=== PATIENT | male | born 1960 | race Caucasian/White ===

== ENCOUNTER → 2016-07-23 | Outpatient (CLI) | payer BC ==
[2016-07-23 18:38] LABS: Blood Urea Nitrogen 10 mg/dL (9-20); Non-African American GFR(MDRD) >60 (>60 ml/min/1.73 sqM)
--- NOTE | 2016-07-24 08:58 | CT ---
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 CT DLP: 1714.6 mGycm Automated exposure control for dose reduction was used. CONTRAST: CT scan of the chest, abdomen and pelvis is performed with Oral Contrast and with IV Contrast, patien t injected with 100 mL of Omnipaque 300. FINDINGS: LUNGS: The lungs are grossly clear, there is no concerning parenchymal mass or nodule identified. T here is no pleural effusion or pneumothorax seen. The tracheobronchial tree is patent. Lung apices w ere not included on the exam. MEDIASTINUM: There are no greater than 1 cm hilar or mediastinal lymph nodes. No pericardial effusi on is seen. AORTA: No significant abnormality is seen. OTHER: No additional significant abnormality is seen. LIVER/GB: The liver shows low attenuation and is enlarged likely due to fatty infiltration. Gallbladd er is unremarkable. PANCREAS: No significant abnormality is seen. SPLEEN: No significant abnormality is seen. ADRENALS: No significant abnormality is seen. KIDNEYS: Stable appearance. Hypodense focus associated with the right kidney is stable. REPRODUCTIVE ORGANS: The prostate is enlarged and shows some associated calcifications BOWEL: The appendix is not seen. No evident bowel obstruction. Postop changes noted at the cecum FREE AIR: No Free Air visible. ASCITES: None seen. RETROPERITONEAL ADENOPATHY: No retroperitoneal adenopathy is seen. LYMPH NODES: No greater than 1 cm abdominal or pelvic lymph nodes are appreciated. URINARY BLADDER: No significant abnormality is seen. PELVIC ADENOPATHY: None visualized. OSSEOUS STRUCTURES: No significant abnormality is seen. IMPRESSION: Postop changes. No evident recurrence.
== END | disposition home or self-care (01) ==
LOC: RADCTMAIN 18:01
PROVIDERS: ATTEND Internal Medicine Hematology & Oncology
DX: Z03.89 Encounter for observation for other suspected diseases and conditions ruled out (principal); C18.1 Malignant neoplasm of appendix
CPT/HCPCS: 82565; 84520; 71260; 74177; 36415; Q9967

== ENCOUNTER 2016-09-15 13:36 | Observation (INO) | payer BC ==
[2016-09-15] MEDS ORDERED: ASPIRIN 81 MG CHEW PO STA (14:26)
[2016-09-15] MEDS ORDERED: NITROGLYCERIN SL TABS 0.4 MG TAB SUBLINGUAL STA ×3 (14:26)
--- NOTE | 2016-09-15 14:31 | ED ---
General Adult HPI - General Chief complaint: Chest Pain Stated complaint: Sent by PCP rt side pain Time Seen by Provider: 09/15/16 14:00 Source: patient, RN notes reviewed Mode of arrival: ambulatory Limitations: no limitations - History of Present Illness Initial comments: Patient is a pleasant 56-year-old male presenting to the emergency department complaining of chest discomfort. Onset of symptoms was last night. Symptoms are more persistent at this point. Patient did have symptoms several days ago that were mild and short lasting. Discomfort feels like an ache. Discomfort is more right-sided. Discomfort does somewhat worsen with deep breath. Otherwise no dyspnea. No nausea or diaphoresis. No leg pain or swelling. No cough or fever. Discomfort is currently rated 8/10. - Related Data Home Medications Medication Instructions Recorded Confirmed Aspirin 81 mg PO DAILY 05/23/14 09/15/16 Losartan Potassium [Cozaar] 100 mg PO DAILY 05/23/14 09/15/16 sitaGLIPtin PHOS/metFORMIN HCL 1 tab PO BID 05/23/14 09/15/16 [Janumet 50-1,000 mg Tablet] Allergies Allergy/AdvReac Type Severity Reaction Status Date / Time codeine AdvReac HEADACHE Verified 09/15/16 14:23 Review of Systems ROS Statement: Those systems with pertinent positive or pertinent negative responses have been documented in the HPI. ROS Other: All systems not noted in ROS Statement are negative. Constitutional: Denies: fever Eyes: Denies: eye pain ENT: Denies: ear pain Respiratory: Denies: cough, dyspnea Cardiovascular: Reports: chest pain Endocrine: Denies: fatigue Gastrointestinal: Denies: abdominal pain Genitourinary: Denies: urgency Musculoskeletal: Denies: back pain Skin: Denies: rash Neurological: Denies: weakness Past Medical History Past Medical History: Cancer, Diabetes Mellitus, GI Bleed, Hearing Disorder / Deafness, Hyperlipidemia, Hypertension Additional Past Medical History / Comment(s): DEAF LEFT EAR/ COCHLEA IMPLANT; APPENDIX BX REPORT FROM 03/13 15 SHOWED INVASIVE ADENOCARCINOMA History of Any Multi-Drug Resistant Organisms: None Reported Past Surgical History: Appendectomy, Ear Surgery Additional Past Surgical History / Comment(s): Laparoscopic R colectomy, BENIGN BRAIN TUMOR EXC- Left ear cochlear implant, Colonoscopy Rt thumb sx x2-thumb is swollen-hard to use, Lap Appendectomy. Past Anesthesia/Blood Transfusion Reactions: No Reported Reaction Past Psychological History: No Psychological Hx Reported Additional Psychological History / Comment(s): Pt resides with his spouse. He is independent. He uses no assistive device. He drives. Smoking Status: Never smoker Past Alcohol Use History: Occasional Additional Past Alcohol Use History / Comment(s): 12-15 BEERS OR SO, ONCE PER MO AVG Past Drug Use History: None Reported - Past Family History Father Family Medical History: Congestive Heart Failure (CHF), Diabetes Mellitus, Hypertension, Myocardial Infarction ([place]) Mother Family Medical History: Cancer, Diabetes Mellitus Additional Family Medical History / Comment(s): throat /lymph node cancer General Exam Limitations: no limitations General appearance: alert, in no apparent distress Head exam: Present: atraumatic Eye exam: Present: normal appearance, PERRL ENT exam: Present: normal oropharynx Neck exam: Present: normal inspection Respiratory exam: Present: normal lung sounds bilaterally. Absent: chest wall tenderness Cardiovascular Exam: Present: regular rate, normal rhythm Expanded Peripheral pulses: 2+: Radial (R), Radial (L), Dorsalis Pedis (R), Dorsalis Pedis (L) GI/Abdominal exam: Present: soft. Absent: tenderness Extremities exam: Present: normal inspection. Absent: pedal edema, calf tenderness Neurological exam: Present: alert Psychiatric exam: Present: normal affect, normal mood Skin exam: Absent: rash Course Vital Signs 09/15/16 09/15/16 09/15/16 13:45 14:41 14:50 Temperature 99.1 F Pulse Rate 93 84 Respiratory 18 18 Rate Blood Pressure 163/91 159/77 152/70 O2 Sat by Pulse 97 99 99 Oximetry 09/15/16 15:47 Temperature Pulse Rate 78 Respiratory 18 Rate Blood Pressure 133/80 O2 Sat by Pulse 98 Oximetry EKG Findings - EKG Comments: EKG Findings:: Normal sinus rhythm 78. GA 180. QRS 118. QT 366. QTc 417. Left axis. LVH with repolarization changes. Previous EKG from the office dated 05/18/2016 with similar findings. Medical Decision Making - Medical Decision Making Patient reevaluated and resting comfortably in bed. Patient and family updated on results and plan. Case was discussed in detail with Dr. Li, who will admit his patient with cardiology consult. - Lab Data Result diagrams: 09/15/16 14:25 05/09/17 14:25 Lab Results 09/15/16 09/15/16 09/15/16 Range/Units 14:25 14:25 14:25 WBC 7.7 (3.8-10.6) k/uL RBC 5.49 (4.30-5.90) m/uL Hgb 16.0 (13.0-17.5) gm/dL Hct 45.5 (39.0-53.0) % MCV 82.9 (80.0-100.0) fL MCH 29.1 (25.0-35.0) pg MCHC 35.1 (31.0-37.0) g/dL RDW 13.2 (11.5-15.5) % Plt Count 191 (150-450) k/uL Neutrophils % 76 % Lymphocytes % 15 % Monocytes % 5 % Eosinophils % 2 % Basophils % 1 % Neutrophils # 5.9 (1.3-7.7) k/uL Lymphocytes # 1.1 (1.0-4.8) k/uL Monocytes # 0.4 (0-1.0) k/uL Eosinophils # 0.1 (0-0.7) k/uL Basophils # 0.1 (0-0.2) k/uL PT (9.0-12.0) sec INR (<1.1) APTT (22.0-30.0) sec D-Dimer (<0.60) mg/L FEU Sodium 140 (137-145) mmol/L Potassium 3.8 (3.5-5.1) mmol/L Chloride 103 (98-107) mmol/L Carbon Dioxide 25 (22-30) mmol/L Anion Gap 12 mmol/L BUN 14 (9-20) mg/dL Creatinine 0.99 (0.66-1.25) mg/dL Est GFR (MDRD) Af Amer >60 (>60 ml/min/1.73 sqM) Est GFR (MDRD) Non-Af >60 (>60 ml/min/1.73 sqM) Glucose 207 H (74-99) mg/dL Calcium 9.8 (8.4-10.2) mg/dL Magnesium 1.6 (1.6-2.3) mg/dL Total Bilirubin 0.9 (0.2-1.3) mg/dL AST 42 (17-59) U/L ALT 52 (21-72) U/L Alkaline Phosphatase 84 (38-126) U/L Total Creatine Kinase 213 H (55-170) U/L CK-MB (CK-2) 1.9 (0.0-2.4) ng/mL CK-MB (CK-2) Rel Index 0.9 Troponin I <0.012 (0.000-0.034) ng/mL Total Protein 8.1 (6.3-8.2) g/dL Albumin 4.8 (3.5-5.0) g/dL 09/15/16 Range/Units 14:25 WBC (3.8-10.6) k/uL RBC (4.30-5.90) m/uL Hgb (13.0-17.5) gm/dL Hct (39.0-53.0) % MCV (80.0-100.0) fL MCH (25.0-35.0) pg MCHC (31.0-37.0) g/dL RDW (11.5-15.5) % Plt Count (150-450) k/uL Neutrophils % % Lymphocytes % % Monocytes % % Eosinophils % % Basophils % % Neutrophils # (1.3-7.7) k/uL Lymphocytes # (1.0-4.8) k/uL Monocytes # (0-1.0) k/uL Eosinophils # (0-0.7) k/uL Basophils # (0-0.2) k/uL PT 10.6 (9.0-12.0) sec INR 1.0 (<1.1) APTT 25.3 (22.0-30.0) sec D-Dimer 0.39 (<0.60) mg/L FEU Sodium (137-145) mmol/L Potassium (3.5-5.1) mmol/L Chloride (98-107) mmol/L Carbon Dioxide (22-30) mmol/L Anion Gap mmol/L BUN (9-20) mg/dL Creatinine (0.66-1.25) mg/dL Est GFR (MDRD) Af Amer (>60 ml/min/1.73 sqM) Est GFR (MDRD) Non-Af (>60 ml/min/1.73 sqM) Glucose (74-99) mg/dL Calcium (8.4-10.2) mg/dL Magnesium (1.6-2.3) mg/dL Total Bilirubin (0.2-1.3) mg/dL AST (17-59) U/L ALT (21-72) U/L Alkaline Phosphatase (38-126) U/L Total Creatine Kinase (55-170) U/L CK-MB (CK-2) (0.0-2.4) ng/mL CK-MB (CK-2) Rel Index Troponin I (0.000-0.034) ng/mL Total Protein (6.3-8.2) g/dL Albumin (3.5-5.0) g/dL - Radiology Data Radiology results: image reviewed (Chest x-ray shows no acute process) Disposition Clinical Impression: Chest pain Disposition: ADMITTED IP TO THIS [facility] Time of Disposition: 15:57
[2016-09-15 14:35] LABS: Basophils # (A) 0.1 k/uL (0-0.2); Basophils % (A) 1 %; CH 29.8; CHCM 36.1; Eosinophils # (A) 0.1 k/uL (0-0.7); Eosinophils % (A) 2 %; HCT 45.5 % (39.0-53.0); HDW 3.03; Luc # (Auto) 0.13; Luc % (Auto) 2; Lymphocytes # (A) 1.1 k/uL (1.0-4.8); Lymphocytes % (A) 15 %; MCH 29.1 pg (25.0-35.0); MCHC 35.1 g/dL (31.0-37.0); MCV 82.9 fL (80.0-100.0); Mean Platelet Volume 6.5; Monocytes # (A) 0.4 k/uL (0-1.0); Monocytes % (A) 5 %; Neutrophils # (A) 5.9 k/uL (1.3-7.7); Neutrophils % (A) 76 %; RBC 5.49 m/uL (4.30-5.90); RDW 13.2 % (11.5-15.5); WBC 7.7 k/uL (3.8-10.6); WBC (Perox) 7.61
[2016-09-15 14:49] LABS: Partial Thromboplastin Time 25.3 sec (22.0-30.0); Prothrombin Time 10.6 sec (9.0-12.0)
[2016-09-15 14:52] LABS: ALT 52 U/L (21-72); AST 42 U/L (17-59); Alkaline Phosphatase 84 U/L (38-126); Anion Gap 12 mmol/L; Blood Urea Nitrogen 14 mg/dL (9-20); Calcium 9.8 mg/dL (8.4-10.2); Carbon Dioxide 25 mmol/L (22-30); Chloride 103 mmol/L (98-107); Glucose 207 mg/dL (74-99); Magnesium 1.6 mg/dL (1.6-2.3); Non-African American GFR(MDRD) >60 (>60 ml/min/1.73 sqM); Potassium 3.8 mmol/L (3.5-5.1); Sodium 140 mmol/L (137-145); Total Bilirubin 0.9 mg/dL (0.2-1.3); Total Protein 8.1 g/dL (6.3-8.2)
[2016-09-15 15:12] LABS: Creatine Kinase 213 U/L (55-170)
--- NOTE | 2016-09-15 15:23 | XR ---
EXAMINATION TYPE: XR chest 2V DATE OF EXAM: 09/15/2016 3:08 PM COMPARISON: CT chest 23 July 2016 HISTORY: Chest pain TECHNIQUE: Frontal and lateral views of the chest are obtained. FINDINGS: There is no focal air space opacity, pleural effusion, or pneumothorax seen. The cardiac silhouette size is within normal limits. There are overlying cardiac leads. Lung volumes are low. In terstitium is prominent. The osseous structures are intact. IMPRESSION: Expiratory rotated exam. Follow-up as indicated.
[2016-09-15 15:24] LABS: Creatine Kinase MB 1.9 ng/mL (0.0-2.4); Troponin I <0.012 ng/mL (0.000-0.034)
[2016-09-15] MEDS ORDERED: MORPHINE SULFATE 4 MG/ML SYRINGE IV STA (15:55)
[2016-09-15] MEDS ORDERED: NITROGLYCERIN SL TABS 0.4 MG TAB SUBLINGUAL PRN (15:57)
[2016-09-15] MEDS: NITROGLYCERIN OINT 1 INCH/GM PACKET TOPICAL SCH (18:07)
[2016-09-15 20:34] LABS: Glucose,Whole Blood 167 mg/dL (75-99)
[2016-09-15] MEDS: INSULIN LISPRO (humaLOG) 300 UNIT/3 ML VIAL SQ SCH (21:16)
[2016-09-15 21:57] LABS: Creatine Kinase 165 U/L (55-170)
[2016-09-15 22:09] LABS: Creatine Kinase MB 1.3 ng/mL (0.0-2.4); Troponin I <0.012 ng/mL (0.000-0.034)
[2016-09-16 03:13] LABS: Cholesterol 196 mg/dL (<200); HDL Cholesterol 46 mg/dL (40-60); Triglycerides 290 mg/dL (<150)
[2016-09-16 03:15] LABS: Creatine Kinase 119 U/L (55-170)
[2016-09-16 03:29] LABS: Creatine Kinase MB 1.1 ng/mL (0.0-2.4); Troponin I <0.012 ng/mL (0.000-0.034)
[2016-09-16] MEDS: NITROGLYCERIN OINT 1 INCH/GM PACKET TOPICAL SCH ×3 (03:47→11:51)
[2016-09-16 08:28] LABS: Glucose,Whole Blood 156 mg/dL (75-99)
[2016-09-16 08:36] VITALS: RESP 16
[2016-09-16] MEDS: INSULIN LISPRO (humaLOG) 300 UNIT/3 ML VIAL SQ SCH ×2 (08:41→12:28)
--- NOTE | 2016-09-16 08:43 | P.CRDCN ---
History of Present Illness Consult date: 09/16/16 Chief complaint: Chest pain History of present illness: This is a pleasant 56-year-old gentleman was no significant cardiac history but history of diabetes, hypertension, dyslipidemia presented to the emergency room complaining of chest discomfort. He was in his usual state of health until yesterday when he was going to sleep and started experiencing discomfort on the right lower chest without any radiation to the arm or neck or shoulders and without any associated symptoms of shortness of breath, sweating, dizziness or lightheadedness. The patient underwent an EKG which showed sinus mechanism with left anterior fascicular block and without any ischemic changes. He has 3 sets of enzymes came in to be unremarkable. The patient is not aware of any prior history of CAD or any revascularization in the past. He has diabetes, hypertension, dyslipidemia He does not smoke or drink alcohol. There is no history of premature CAD. I am recommending proceeding with a stress test. Severe underlying CAD to be ruled out in this gentleman with multiple risk factors. Past Medical History Past Medical History: Cancer, Diabetes Mellitus, GI Bleed, Hearing Disorder / Deafness, Hyperlipidemia, Hypertension Additional Past Medical History / Comment(s): DEAF LEFT EAR/ COCHLEA IMPLANT; APPENDIX BX REPORT FROM 03/13 15 SHOWED INVASIVE ADENOCARCINOMA History of Any Multi-Drug Resistant Organisms: None Reported Past Surgical History: Appendectomy, Ear Surgery Additional Past Surgical History / Comment(s): lap appendectomy/ Laparoscopic R colectomy, BENIGN BRAIN TUMOR EXC- Left ear cochlear implant, Colonoscopy Rt thumb sx x2-thumb is swollen-hard to use, colonoscopy Past Anesthesia/Blood Transfusion Reactions: No Reported Reaction Past Psychological History: No Psychological Hx Reported Additional Psychological History / Comment(s): Pt resides with his spouse in a single level home that has 2 steps.1 dog He is independent. He uses no assistive device. He drives. Smoking Status: Never smoker Past Alcohol Use History: Occasional Additional Past Alcohol Use History / Comment(s): 12-15 BEERS OR SO, ONCE PER MO AVG Past Drug Use History: None Reported - Past Family History Father Family Medical History: Congestive Heart Failure (CHF), Diabetes Mellitus, Hypertension, Myocardial Infarction ([place]) Mother Family Medical History: Cancer, Diabetes Mellitus Additional Family Medical History / Comment(s): throat /lymph node cancer Medications and Allergies Home Medications Medication Instructions Recorded Confirmed Type Aspirin 81 mg PO DAILY 05/23/14 09/15/16 History Losartan Potassium [Cozaar] 100 mg PO DAILY 05/23/14 09/15/16 History sitaGLIPtin PHOS/metFORMIN HCL 1 tab PO BID 05/23/14 09/15/16 History [Janumet 50-1,000 mg Tablet] Allergies Allergy/AdvReac Type Severity Reaction Status Date / Time codeine AdvReac HEADACHE Verified 09/15/16 14:23 Physical Exam Vitals: Vital Signs Temp Pulse Pulse Resp BP BP Pulse Ox 09/16/16 08:00 98.2 F 62 16 134/75 97 09/16/16 04:00 98.2 F 75 18 127/72 96 09/16/16 00:00 98.5 F 78 18 134/70 95 09/15/16 20:00 16 09/15/16 19:31 98.1 F 74 16 131/72 96 09/15/16 18:27 97.8 F 77 17 151/85 96 09/15/16 18:24 98.4 F 72 18 151/86 97 09/15/16 18:00 98.4 F 72 18 151/86 97 09/15/16 16:59 70 16 133/80 98 Intake and Output 09/15/16 09/16/16 09/16/16 22:59 06:59 14:59 Intake Total 510 Balance 510 Intake: Amount of Fluid Infused ( 150 ml) Oral 360 Other: # Voids 1 1 Weight 102.6 kg - Constitutional General appearance: no acute distress - Respiratory Respiratory: bilateral: CTA - Cardiovascular Rhythm: regular Heart sounds: normal: S1, S2 Results 09/15/16 14:25 09/15/16 14:25 Cardiac Enzymes 09/15/16 09/16/16 Range/Units 21:09 02:46 CK-MB (CK-2) 1.3 1.1 (0.0-2.4) ng/mL Troponin I <0.012 <0.012 (0.000-0.034) ng/mL Lipids 09/16/16 Range/Units 02:46 Triglycerides 290 H (<150) mg/dL Cholesterol 196 (<200) mg/dL HDL Cholesterol 46 (40-60) mg/dL Current Medications Generic Name Dose Route Start Last Admin Trade Name Freq PRN Reason Stop Dose Admin Aspirin 325 mg 09/16/16 09:00 Aspirin PO DAILY [facility] Insulin Human Lispro 0 unit 09/15/16 21:00 09/15/16 21:16 Humalog SQ 2 unit ACHS [facility] Administration Protocol Losartan Potassium 100 mg 09/16/16 09:00 Cozaar PO DAILY [facility] Nitroglycerin 1 inch 09/15/16 18:00 09/16/16 08:25 Nitro-Bid Oint TOPICAL Not Given Q6HR [facility] Nitroglycerin 0.4 mg 09/15/16 15:57 Nitrostat SUBLINGUAL Q5M PRN Chest Pain Sodium Chloride 10 ml 09/15/16 21:00 09/15/16 21:18 Saline Flush IV 10 ml BID JOAN Administration Intake and Output 09/15/16 09/16/16 09/16/16 22:59 06:59 14:59 Intake Total 510 Balance 510 Intake: Amount of Fluid Infused ( 150 ml) Oral 360 Other: # Voids 1 1 Weight 102.6 kg Assessment and Plan Plan: Assessment #1 atypical chest discomfort #2 multiple risk factors for CAD Plan #1 the patient was ruled out for acute coronary event #2 I will schedule the patient to undergo a stress echocardiogram.
[2016-09-16] MEDS ORDERED: LOSARTAN 50 MG TAB PO SCH (09:00)
[2016-09-16] MEDS ORDERED: ASPIRIN 325 MG TAB PO SCH (09:00)
--- NOTE | 2016-09-16 10:53 | HP ---
DATE OF ADMISSION: CHIEF COMPLAINT: Severe right lateral chest pain. A 56-year-old white male who came into my office with severe right lateral chest pain. His hypertension, his cholesterol and diabetes is his previous history. The pain was severe. He could not take a big breath and there was really no trauma that was involved, it just came very severe and stayed there. There was no radiation. There was no diaphoresis. Chest x-ray in the office was completed showed no pneumothorax, no pneumonia. The EKG showed sinus rhythm and without any ischemic changes and he has had 3 sets of enzymes that have been negative. He has a past medical history of diabetes mellitus, hypertension and hyperlipidemia. 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 He has no history of resistant organisms in his past. His additional past history is that of the appendectomy, which also included a laparoscopic right colectomy. He did have an acoustic neuroma that was removed and he has had multiple small surgeries on the thumb and colonoscopy followup. His medications are that of: 1. Aspirin 81. 2. Losartan 100 mg. 3. He has been on metformin. 4. Janumet. He. His allergies, he has had adverse reaction to CODEINE. His family history, his father with congestive heart failure. There is diabetes, hypertension, and previous myocardial infarction. SOCIAL HISTORY: He is a nondrinker, nonsmoker at this time. His beer intake at one time used to be heavier; it is now within normal limits. He is . He has lived with his for a long period of time and he has 2 stepchildren and one dog. He is a mckeon by trade. REVIEW OF SYSTEMS: CARDIOPULMONARY: The chest pain that was a severe, steady type of the right chest pain. Hurts with increased pain with minimal amount of inspiration. No shortness of breath. No orthopnea, no paroxysmal nocturnal dyspnea. GI: No hematemesis, melena, hematochezia. has been normal. Neuromuscular has been normal. Good strength in his arms, a little bit of arthritis in his hands. PHYSICAL EXAMINATION: At this time reviews a blood pressure of 138/80, heart rate is in the 70s, respirations are 16, temperature is 98. EYES: Pupils are equal, round, react to light and accommodation. ENT: Showed tympanic membranes and pharynx to be negative. Neck is supple with midline trachea. CHEST: Essentially clear to auscultation. HEART: Sinus rhythm with no murmur. ABDOMEN: Soft, nontender, with no organomegaly. Thorough chest examination showed no integumentary skin changes. No palpable rib problems. Pain with minimal amount of inspiration and yet, there is no change in the chest x-ray. EKG again shows no acute changes. D-dimer was negative. CBC showed a WBC of 7, hemoglobin 16. Liver enzymes were all normal. Creatinine was normal at 0.9 with a 14 BUN. ASSESSMENT: 1. Acute chest pain of questionable etiology, rule out cardiac event. 2. Probably pleuritic in nature. 3. History of hypertension. 4. History of hyperlipidemia. 5. History of diabetes mellitus. PLAN: I just had a long talk with him with the troponins x3 being negative. Dr. Franklin to see him. My recommendation is a stress test today. Please refer to my orders.
[2016-09-16 12:24] LABS: Glucose,Whole Blood 135 mg/dL (75-99)
[2016-09-16 12:49] VITALS: BP 152/83; PULSE 72; TEMP 98.5
--- NOTE | 2016-09-16 13:33 | ECHOS ---
DATE OF SERVICE: 09/16/2016 AGE: 56Y SEX: M HT: 74 WT: 226 lbs. Protocol Tunde: X Others: Stress Echo Stage: III Dur. of Exercise: 7 minutes *Heart Rate Blood Pressure *Rest: 88 Rest: 130/70 * *Max. Achieved: 149 Maximum BP: 228/74 85% PMHR: 139 100% PMHR: 164 *METS: 8.6 INDICATIONS: Chest pain. MEDICATIONS: Baseline EKG revealed a normal sinus rhythm with minor IVCD leftward axis, poor R wave progression. Patient walked for 7 minutes on a standard Tunde protocol, achieved a maximum heart rate of 149 beats, well above 85% of predicted maximal. Resting blood pressure was 130/70, peak blood pressure was 228/74. EKG remained inconclusive. There were isolated PACs and PVCs which were infrequent. This is an inconclusive stress test because of resting EKG changes. Patient did achieve well above 85% of predicted maximal. In the recovery period, there were a lot of isolated PACs and PVCs without anginal symptoms. By EKG criteria, this is an inconclusive stress test because of resting EKG changes. There was a hypertensive response. Baseline echo images reveal normal wall motion and wall thickening of all segments. At peak exercise, there was good augmentation of left ventricular wall motion and wall thickening of all segments suggesting that there is no evidence of any stress-induced ischemia on this study. FINAL IMPRESSION: 1. Fair exercise capacity with inconclusive stress test by EKG criteria because of resting EKG changes. 2. Hypertensive response to exercise. 3. Normal stress echocardiogram.
== END 2016-09-16 15:36 | disposition home or self-care (01) ==
LOC: EC 13:36 → 3OBS 15:58
PROVIDERS: ADMIT Family Medicine; ATTEND Family Medicine
DX: R07.89 Other chest pain (principal); I10 Essential (primary) hypertension; E78.5 Hyperlipidemia, unspecified; E11.9 Type 2 diabetes mellitus without complications; H91.92 Unspecified hearing loss, left ear; Z96.21 Cochlear implant status; Z79.82 Long term (current) use of aspirin; Z79.899 Other long term (current) drug therapy; Z79.84 Long term (current) use of oral hypoglycemic drugs; Z88.5 Allergy status to narcotic agent; Z85.89 Personal history of malignant neoplasm of other organs and systems; Z92.21 Personal history of antineoplastic chemotherapy; Z82.49 Family history of ischemic heart disease and other diseases of the circulatory system; Z86.011 Personal history of benign neoplasm of the brain
CPT/HCPCS: 96372 ×2; 99285; 36415; 93005; 93017; 93350; 85379; 80061; 80053; 83036; 82550 ×2; 82553 ×2; 83735; 84484 ×2; 85025; 85610; 85730; 71020; G0378 ×2

== ENCOUNTER → 2016-12-14 | Outpatient (CLI) | payer BC ==
[2016-12-14 19:05] LABS: Blood Urea Nitrogen 13 mg/dL (9-20); Non-African American GFR(MDRD) >60 (>60 ml/min/1.73 sqM)
--- NOTE | 2016-12-14 21:44 | CT ---
EXAMINATION TYPE: CT ChestAbdPelvis w con DATE OF EXAM: 12/14/2016 COMPARISON: 07/23/2016, 09/19/2015, 04/17/2015 HISTORY: Follow-up cancer of appendix. CT DLP: 1621.00 mGycm Automated exposure control for dose reduction was used. CONTRAST: CT scan of the chest, abdomen and pelvis is performed with Oral Contrast and with IV Contrast, patien t injected with 100 mL of Omnipaque 300. FINDINGS: LUNGS: The lungs are grossly clear, there is no concerning parenchymal mass or nodule identified. The re is no pleural effusion or pneumothorax seen. The tracheobronchial tree is patent. Lung apices were not included on the exam. MEDIASTINUM: There are no greater than 1 cm hilar or mediastinal lymph nodes. No pericardial effusion is seen. AORTA: No significant abnormality is seen. OTHER: No additional significant abnormality is seen. LIVER/GB: The liver shows low attenuation and is enlarged likely due to fatty infiltration. Gallbladd er is unremarkable. PANCREAS: No significant abnormality is seen. SPLEEN: No significant abnormality is seen. ADRENALS: No significant abnormality is seen. KIDNEYS: Stable appearance. Hypodense focus associated with the each kidney is stable and nonspecific and too small to characterize. REPRODUCTIVE ORGANS: The prostate is enlarged and shows some associated calcifications BOWEL: The appendix is not seen. No evident bowel obstruction. Postop changes noted at the cecum FREE AIR: No Free Air visible. ASCITES: None seen. RETROPERITONEAL ADENOPATHY: No retroperitoneal adenopathy is seen. LYMPH NODES: No greater than 1 cm abdominal or pelvic lymph nodes are appreciated. URINARY BLADDER: No significant abnormality is seen. PELVIC ADENOPATHY: None visualized. OSSEOUS STRUCTURES: Hypertrophic arthropathy of the SI joints. IMPRESSION: 1. Postoperative change with no diagnostic evidence of metastases. 2. Stable renal lesions too small to characterize. They're indeterminate by Hounsfield density but un changed relative to multiple previous CT scans.
== END | disposition home or self-care (01) ==
LOC: RADCTMAIN 18:25
PROVIDERS: ATTEND Internal Medicine Hematology & Oncology
DX: C18.1 Malignant neoplasm of appendix (principal); N28.89 Other specified disorders of kidney and ureter
CPT/HCPCS: 82565; 84520; 71260; 74177; 36415; Q9967

== ENCOUNTER → 2017-08-06 | Outpatient (CLI) | payer BC ==
[2017-08-06 18:24] LABS: Blood Urea Nitrogen 17 mg/dL (9-20)
--- NOTE | 2017-08-06 23:43 | MR ---
EXAMINATION TYPE: MR brain and iac wo/w con DATE OF EXAM: 08/06/2017 COMPARISON: NONE HISTORY: Post op follow up acoustic neuroma TECHNIQUE: Multiplanar, multisequence images of the brain and brainstem is performed without and with IV contras t, utilizing 10 mL intravenous Gadavist . FINDINGS: Ventricles of normal size. There is no mass effect nor midline shift. There is no sign of intracrania l hemorrhage. There are 2 small foci of increased signal on the FLAIR images in the white matter righ t posterior temporal lobe on the axial images. These measure up to 3 mm. Brain stem is intact. The co rpus callosum appears normal. There is mixed signal involving the left temporal bone consistent with surgery. This is seen in the p etrous portion. There is an 11 mm somewhat rounded area of enhancement at the posterior aspect of the left internal auditory canal consistent with neuroma. The right internal auditory canal appears norm al. There is normal flow void in the anterior middle and posterior cerebral arteries. The pituitary gland appears enlarged and measures 13 x 10 mm. There is a convex superior border. Ther e is shortening of the pituitary stalk. Pituitary gland extends up to the optic chiasm. There is a 5 mm rounded area of decreased enhancement on the left side of the pituitary gland consistent with a mi croadenoma. IMPRESSION: Small enhancing mass at the left internal auditory canal is consistent with an acoustic n euroma. I do not have any preoperative or postoperative comparison exam. This finding could relate to residual tumor or recurrent tumor. There is enlargement of the pituitary gland with evidence of a microadenoma on the left side.
== END ==
LOC: RADMRIMAIN 17:54
PROVIDERS: ATTEND Otolaryngology
DX: H93.8X2 Other specified disorders of left ear (principal)
CPT/HCPCS: 82565; 84520; 70553; A9581

== ENCOUNTER → 2017-08-16 | Outpatient (CLI) | payer BC ==
[2017-08-16 17:34] LABS: Blood Urea Nitrogen 14 mg/dL (9-20)
--- NOTE | 2017-08-17 08:26 | CT ---
EXAMINATION TYPE: CT ChestAbdPelvis w con DATE OF EXAM: 08/16/2017 COMPARISON: 04/14/2017 HISTORY: Follow up appendiceal cancer. CT DLP: 2239 mGycm CONTRAST: CT scan of the chest, abdomen and pelvis is performed with Oral Contrast and with IV Contrast, patien t injected with 100 mL of Isovue 300. CT Chest: LUNGS: The lungs are clear and free of infiltrate or atelectasis. No pulmonary nodule or mass is det ected. No pleural effusion or CT evidence of interstitial lung disease. MEDIASTINUM: Thoracic aorta is of normal caliber. The heart is not enlarged. No evidence for media stinal mass or adenopathy. HILAR STRUCTURES: No evidence for mass. No hilar adenopathy is appreciated. OTHER: No significant abnormality. CONTRAST CT ABDOMEN AND PELVIS FINDINGS: LIVER/GB: No calcified gallstones. No space occupying hepatic lesion. Biliary tree is of normal ca liber. Hepatic steatosis with hepatomegaly is stable. PANCREAS: No inflammation. No distinct mass. SPLEEN: No splenic enlargement. No lesion seen. ADRENALS: No nodule. No thickening. KIDNEYS/BLADDER: No hydronephrosis. No nephrolithiasis. No solid renal mass. Stable renal cystic changes. BOWEL: Normal appendix. Normal bowel caliber. No inflammation. GENITAL ORGANS: No gross abnormality. LYMPH NODES: No greater than 1cm abdominal or pelvic lymph nodes are appreciated. AORTA: No significant abnormality. OSSEOUS STRUCTURES: No significant abnormality is seen. OTHER: No significant additional abnormality is seen. IMPRESSION: 1. No evidence for metastatic disease. Stable examination.
== END | disposition home or self-care (01) ==
LOC: RADCTMAIN 16:46
PROVIDERS: ATTEND Internal Medicine Hematology & Oncology
DX: C18.1 Malignant neoplasm of appendix (principal)
CPT/HCPCS: 82565; 84520; 71260; 74177; 36415; Q9967

== ENCOUNTER 2017-11-12 07:46 | Day surgery (SDC) | payer BC ==
[2017-11-09 14:42] VITALS: BMI 28.2
[~2017-11-12 07:46] MED LIST: LACTATED RINGERS 1,000 ML IV SCH; LIDOCAINE 1% 20 ML VIAL (10MG/ML) FOR IV START INTRADERMA PRN
[2017-11-12] MEDS ORDERED: LACTATED RINGERS 1,000 ML IV ONE (08:01)
[2017-11-12 08:09] LABS: Glucose,Whole Blood 169 mg/dL (75-99)
[2017-11-12 08:17] VITALS: RESP 18; TEMP 97.7
[2017-11-12] MEDS ORDERED: PROPOFOL 10 MG/ML 20 ML VIAL IV ONE (09:10)
[2017-11-12] MEDS ORDERED: fentaNYL (PF) 50 MCG/ML 2 ML AMP ONE (09:10)
[2017-11-12] MEDS ORDERED: GLYCOPYRROLATE 0.2 MG/ML 2 ML VIAL ONE (09:10)
[2017-11-12] MEDS ORDERED: LIDOCAINE 1% INJ 10MG/ML (20 ML MDV) ONE (09:10)
--- NOTE | 2017-11-12 09:18 | P.GSHP ---
History of Present Illness H&P Date: 11/12/17 Chief Complaint: GERD, screening colonoscopy, history of colon cancer This a 57-year-old male who presents today for EGD and colonoscopy. He's had issues with GERD. He also has having a screening colonoscopy before. Patient has a previous history of an appendiceal carcinoma. 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, History of Any Multi-Drug Resistant Organisms: None Reported Past Surgical History: Appendectomy, Back Surgery, Ear Surgery Additional Past Surgical History / Comment(s): Laparoscopic R colectomy, Left ear cochlear implant, BRAIN SX, COLONOSCOPY Past Anesthesia/Blood Transfusion Reactions: No Reported Reaction Smoking Status: Never smoker - Past Family History Father Family Medical History: Congestive Heart Failure (CHF), Diabetes Mellitus, Hypertension, Myocardial Infarction ([place]) Mother Family Medical History: Cancer Additional Family Medical History / Comment(s): throat /lymph node cancer Medications and Allergies Home Medications Medication Instructions Recorded Confirmed Type Losartan Potassium [Cozaar] 100 mg PO DAILY 05/23/14 11/09/17 History sitaGLIPtin PHOS/metFORMIN HCL 1 tab PO BID 05/23/14 11/09/17 History [Janumet 50-1,000 mg Tablet] Allergies Allergy/AdvReac Type Severity Reaction Status Date / Time codeine AdvReac HEADACHE Verified 11/09/17 14:31 Surgical - Exam Vital Signs Temp Pulse Resp BP Pulse Ox 97.7 F 78 18 147/89 98 11/12/17 08:01 11/12/17 08:01 11/12/17 08:01 11/12/17 08:01 11/12/17 08:01 - General well developed, no distress - Eyes PERRL - ENT normal pinna - Neck no masses - Respiratory normal expansion - Cardiovascular Rhythm: regular - Abdomen Abdomen: soft, non tender Results - Labs Abnormal Lab Results - Last 24 Hours (Table) 11/12/17 Range/Units 08:07 POC Glucose (mg/dL) 169 H (75-99) mg/dL Assessment and Plan Assessment: GERD, history of colon cancer. We'll perform EGD and colonoscopy.
--- NOTE | 2017-11-12 09:38 | P.OP ---
Date of Procedure: 11/12/17 Preoperative Diagnosis: GERD Screening colonoscopy History: Cancer Postoperative Diagnosis: Antral gastritis Small hiatal hernia Mild esophagitis Normal colon status post right colectomy Procedure(s) Performed: EGD Colonoscopy Anesthesia: MAC Surgeon: Arpan Shipley Pathology: other (Antral, esophagus) Condition: stable Disposition: PACU Description of Procedure: The patient's placed on the endoscopy table in the lateral position. He received IV sedation. The gastroscope placed oropharynx passed in the esophagus into the stomach. The scope was then placed through the pylorus. The first and second portion of the duodenum appeared normal. Scope was then brought back the antrum this. Mildly inflamed. A biopsies performed. Scope was then retroflexed the remainder stomach appeared normal. The patient had a small sliding hiatal hernia. The GE junction was at 38 cm. The distal esophagus. Minimal inflamed and a biopsies performed. The proximal esophagus appeared normal. Scope was withdrawn for patient. Next digital rectal exam was performed which revealed no abnormalities. The flexible colonoscope was then placed patient anus passed throughout the entire colon. The patient had a previous right colectomy. The ileocolonic anastomosis visualized. The transverse colon and descending colon appeared normal. The sigmoid colon was normal. Scope was then brought back the rectum and this appeared normal. Scope was withdrawn for patient.
[2017-11-12 09:57] VITALS: BP 124/75; PULSE 67
== END 2017-11-12 10:30 | disposition home or self-care (01) ==
LOC: ORWHC2ENDO 07:46
PROVIDERS: ATTEND Surgery
DX: Z12.11 Encounter for screening for malignant neoplasm of colon (principal); K21.0 Gastro-esophageal reflux disease with esophagitis; K29.50 Unspecified chronic gastritis without bleeding; K44.9 Diaphragmatic hernia without obstruction or gangrene; Z85.038 Personal history of other malignant neoplasm of large intestine; Z90.49 Acquired absence of other specified parts of digestive tract; I10 Essential (primary) hypertension; E11.9 Type 2 diabetes mellitus without complications; H91.92 Unspecified hearing loss, left ear; Z79.84 Long term (current) use of oral hypoglycemic drugs; Z88.5 Allergy status to narcotic agent
CPT/HCPCS: 88305; 43239; J2001; J3010; J2704; G0105; 45378

== ENCOUNTER → 2018-06-30 | Outpatient (CLI) | payer BC, OTHER ==
--- NOTE | 2018-07-01 03:59 | MR ---
EXAMINATION TYPE: MR brain and iac wo/w con DATE OF EXAM: 06/30/2018 COMPARISON: 08/06/2017 HISTORY: Acoustic neuroma TECHNIQUE: Multiplanar, multisequence images of the brain and brainstem is performed without and with IV contras t, utilizing 7.5 mL intravenous Gadavist . FINDINGS: There is mild cerebral cortical atrophy. There is no mass effect nor midline shift. There i s no sign of intracranial hemorrhage. Corpus callosum appears normal. There are numerous small foci o f increased signal on the T2 and FLAIR images at the hammonds-white matter junction of both cerebral kd spheres. Total number is approximately 20. These measure up to 5 mm. The brainstem is intact. There i s no evidence of a sellar mass. There is no evidence of orbital mass. There is a 12 mm x 10 x 9 mm somewhat lobulated enhancing mass at the left internal auditory canal. T his is consistent with acoustic neuroma. There is normal contrast opacification of the venous sinuses. There is arterial flow in the anterior middle and posterior cerebral arteries. IMPRESSION: Enhancing mass at the left internal auditory canal appears stable allowing for error of m easurement compared to previous MR scan of 08/06/2017. This is consistent with acoustic neuroma. Cerebral atrophy. White matter signal changes are nonspecific and could relate to microvascular ische tony. This is unchanged compared to old exam.
== END | disposition home or self-care (01) ==
LOC: RADMRIMAIN 16:56
PROVIDERS: ATTEND Otolaryngology
DX: G31.9 Degenerative disease of nervous system, unspecified (principal); R90.89 Other abnormal findings on diagnostic imaging of central nervous system
CPT/HCPCS: 82565; 84520; 70553; 36415; A9585

== ENCOUNTER → 2019-05-29 | Outpatient (CLI) | payer BC ==
[2019-05-29 15:57] LABS: African American GFR (CKD) >90 (>60 ml/min/1.73 sqM); Blood Urea Nitrogen 20 mg/dL (9-20); Non-African American GFR(CKD) 78 (>60 ml/min/1.73 sqM)
--- NOTE | 2019-05-29 18:12 | CT ---
EXAMINATION TYPE: CT ChestAbdPelvis w con DATE OF EXAM: 05/29/2019 COMPARISON: 08/16/2017 HISTORY: Malignant neoplasm of appendix CT DLP: 2184 mGycm Automated exposure control for dose reduction was used. CONTRAST: Performed with IV Contrast, patient injected with 100 mL of Isovue 300. Multiple axial sections were obtained from the thoracic inlet to the floor the pelvis with intravenou s contrast. The lungs are clear of infiltrate. There is no evidence of a pulmonary mass. There is no pleural effu cabrera. Heart size is normal. There is no mediastinal adenopathy. There are no hilar masses. There is diffuse fatty replacement of the liver. Spleen and pancreas appear normal. Gallbladder appea rs normal. Bile ducts are not dilated. Stomach appears normal. There is no adrenal mass. Kidneys show satisfactory contrast opacification. There is 1.5 cm cortical cyst lateral right kidney. There is no retroperitoneal adenopathy. There are surgical clips at the ce cum. Ureters are not dilated. Bladder distends smoothly. There is no inguinal hernia. There is no free fluid in the pelvis. There is no mesenteric edema. There is no ascites or free air. There is no sign of a bowel obstructio n. Thoracic and lumbar vertebra appear intact. There is no compression fracture. Bony thorax is intact. The bony pelvis is intact. There are few bone islands noted in the pelvis and proximal femurs. IMPRESSION: Negative CT scan chest abdomen pelvis. No evidence of metastatic disease. Fatty infiltration of the l iver. No change compared to old exam.
== END | disposition home or self-care (01) ==
LOC: RADCTMAIN 15:19
PROVIDERS: ATTEND Internal Medicine Hematology & Oncology
DX: K76.0 Fatty (change of) liver, not elsewhere classified (principal); C18.1 Malignant neoplasm of appendix
CPT/HCPCS: 82565; 84520; 71260; 74177; 36415; Q9967

== ENCOUNTER → 2019-06-29 | Outpatient (CLI) | payer BC ==
--- NOTE | 2019-06-30 14:55 | MR ---
EXAMINATION TYPE: MR brain and iac wo/w con DATE OF EXAM: 06/29/2019 COMPARISON: 06/30/2018 HISTORY: prior acoustic neuroma, f/u CONTRAST: Performed utilizing 10 mL intravenous Gadavist gadolinium contrast. TECHNIQUE: Multiplanar, multiecho imaging on a 3.0 Camryn magnet is performed through the brain. Atte ntion is paid to the internal auditory canals with thin section imaging. Postcontrast imaging is per formed through the internal auditory canals. FINDINGS:Craniovertebral junction is normal. The pituitary is normal. Diffusion-weighted imaging is performed. No suspicious hyperintensity is present to suggest an acute intracranial infarct or acute ischemic area. Signal within the brain has scattered areas of hyperintensity which are non-specific but could be rel ated to microvascular ischemic changes. Thin section imaging is performed through the internal auditory canals and cerebellar pontine angles. No cerebellar pontine angle masses are evident. The internal auditory canals appear normal without expansion or erosion. There is fluid within the left mastoid air cells. There is expansion of the left internal auditory ca nal. This area has low signal on T1-weighted images. Following contrast administration this area enha nces. The area of enhancement measures 1.5 x 2.0 cm. This appears to have greater extent into the int ernal auditory canal without distal expansion or erosion at this time. Previous measurements are 2.0 x 1.4 cm. Intracanalicular extension appears greater. Portion of the cerebellar pontine angle likewis e appears alvarado. Postcontrast imaging was performed. No suspicious enhancement is evident within the internal audito ry canals or the included portions of the brain. IMPRESSIONS: 1. Left acoustic schwannoma appears enlarged from the comparison. Overall, measurements however very similar to the prior study. Some fullness of the cerebellar pontine angle mass and greater extension to the intracanalicular portion without expansion or erosion appears to be present.
== END | disposition home or self-care (01) ==
LOC: RADMRIMAIN 13:19
PROVIDERS: ATTEND Otolaryngology
DX: D33.3 Benign neoplasm of cranial nerves (principal); G93.89 Other specified disorders of brain; Z98.890 Other specified postprocedural states
CPT/HCPCS: 70553; A9585

== ENCOUNTER → 2019-12-08 | Outpatient (CLI) | payer BC ==
[2019-12-08 18:01] LABS: African American GFR (CKD) >90 (>60 ml/min/1.73 sqM); Blood Urea Nitrogen 17 mg/dL (9-20); Non-African American GFR(CKD) 78 (>60 ml/min/1.73 sqM)
--- NOTE | 2019-12-09 08:55 | CT ---
EXAMINATION TYPE: CT ChestAbdPelvis w con DATE OF EXAM: 12/08/2019 COMPARISON: 05/29/2019 HISTORY: Follow up for carcinoma of appendix. CT DLP: 1506.9 mGycm CONTRAST: CT scan of the chest, abdomen and pelvis is performed with Oral Contrast and with IV Contrast, patien t injected with 100ml mL of Isovue 300. CT Chest: LUNGS: The lungs are clear and free of infiltrate or atelectasis. No pulmonary nodule or mass is det ected. No pleural effusion or CT evidence of interstitial lung disease. MEDIASTINUM: Thoracic aorta is of normal caliber. The heart is not enlarged. No evidence for media stinal mass or adenopathy. HILAR STRUCTURES: No evidence for mass. No hilar adenopathy is appreciated. OTHER: No significant abnormality. CONTRAST CT ABDOMEN AND PELVIS FINDINGS: LIVER/GB: Hepatic steatosis redemonstrated. No calcified gallstones. No space occupying hepatic le cabrera. Biliary tree is of normal caliber. PANCREAS: No inflammation. No distinct mass. SPLEEN: No splenic enlargement. No lesion seen. ADRENALS: No nodule. No thickening. KIDNEYS/BLADDER: No hydronephrosis. No nephrolithiasis. No disctinct renal mass. BOWEL: Previous appendectomy. No evidence for recurrent mass. Normal bowel caliber. No inflammation. GENITAL ORGANS: No gross abnormality. LYMPH NODES: No greater than 1cm abdominal or pelvic lymph nodes are appreciated. AORTA: No significant abnormality. OSSEOUS STRUCTURES: No significant abnormality is seen. OTHER: No significant additional abnormality is seen. IMPRESSION: 1. No evidence for recurrent mass or metastatic disease. Fatty liver is stable.
== END | disposition home or self-care (01) ==
LOC: RADCTMAIN 17:16
PROVIDERS: ATTEND Internal Medicine Hematology & Oncology
DX: K76.0 Fatty (change of) liver, not elsewhere classified (principal); C18.1 Malignant neoplasm of appendix
CPT/HCPCS: 82565; 84520; 71260; 74177; 36415; Q9967

== ENCOUNTER → 2020-06-04 | Outpatient (CLI) | payer BC ==
--- NOTE | 2020-06-04 14:13 | MR ---
EXAMINATION TYPE: MR brain and iac wo/w con DATE OF EXAM: 06/04/2020 12:22 PM COMPARISON: 06/29/2019 HISTORY: Hearing loss TECHNIQUE: Multiplanar and multispin-echo imaging of the brain was performed both before and after the administr ation of contrast. High-resolution images are obtained of the internal auditory canals performed uti lizing 10 mL intravenous Gadavist contrast. The ventricles, basal cisterns and sulci overlying the cerebral convexities are within normal limits. There is no evidence for midline shift or mass effect. Acute intracranial hemorrhage or extra-axial collection is not evident. There are no abnormal areas of increased or decreased signal intensity within the brain parenchyma. High-resolution imaging of the internal auditory canals again demonstrates left sided acoustic schwan noma measuring approximately 1.6 x 1.5 cm versus 2.0 x 1.5 cm previously. There is intracanalicular e xtension. No significant progression identified. No new masses seen. Right internal auditory canal is unremarkable. Mild chronic ethmoidal chronic sinusitis. Small amount of fluid within the left-sided mastoid air richard ls. IMPRESSION: 1. Stable left-sided acoustic schwannoma as discussed.
== END | disposition home or self-care (01) ==
LOC: RADMRIMAIN 11:22
PROVIDERS: ATTEND Otolaryngology
DX: D33.3 Benign neoplasm of cranial nerves (principal); Z92.3 Personal history of irradiation
CPT/HCPCS: 70553; A9585

== ENCOUNTER → 2020-06-13 | Outpatient (CLI) | payer BC ==
[2020-06-13 13:26] LABS: African American GFR (CKD) >90 (>60 ml/min/1.73 sqM); Blood Urea Nitrogen 17 mg/dL (9-20); Non-African American GFR(CKD) 80 (>60 ml/min/1.73 sqM)
--- NOTE | 2020-06-13 15:19 | CT ---
EXAMINATION TYPE: CT ChestAbdPelvis w con DATE OF EXAM: 06/13/2020 COMPARISON: Most recent CT December 08, 2019 and older CTs HISTORY: F/U for appendix CA CT DLP: 1761 mGycm. Automated Exposure Control for Dose Reduction was Utilized. CONTRAST: CT scan of the thorax, abdomen and pelvis is performed with oral and with IV Contrast, patient inject ed with 100 mL of Isovue 300. FINDINGS: LUNGS: The lungs remain grossly clear, there is no new greater than 5 mm parenchymal mass or nodule i dentified. Stable 2 to 3 mm peripheral nodule right middle lobe axial image 39 unchanged from 2016. S omewhat low lung volumes redemonstrated. There is no pleural effusion or pneumothorax seen. The tr acheobronchial tree is patent. MEDIASTINUM: There are no new greater than 1 cm hilar or mediastinal lymph nodes. No cardiomegaly o r pericardial effusion is seen. LIVER/GB: Visualized liver is heterogeneously hypodense consistent with diffuse fatty infiltration. PANCREAS: No significant abnormality is seen. SPLEEN: No significant abnormality is seen. ADRENALS: No significant abnormality is seen. KIDNEYS: Occasional scattered simple-appearing thin-walled cysts throughout both kidneys. No hydronep hrosis seen bilaterally. BOWEL: Surgical sutures redemonstrated at level of cecum. Oral contrast was not reaches level making evaluation distal bowel slightly suboptimal. Mild to moderate wall thickening transverse colon presum ed product of poor distention. GENITAL ORGANS: Mildly enlarged prostate gland consistent with BPH. LYMPH NODES: No greater than 1cm abdominal or pelvic lymph nodes are appreciated. OSSEOUS STRUCTURES: Multilevel facet arthropathy in the lower lumbar spine. 7 underlying scoliotic cu rvature. Mild/moderate narrowing and mild spurring of both hip joints. OTHER: No significant additional abnormality is seen. IMPRESSION: No suspicious new mass or adenopathy to suggest neoplastic recurrence.
== END | disposition home or self-care (01) ==
LOC: RADCTMAIN 12:31
PROVIDERS: ATTEND Internal Medicine Hematology & Oncology
DX: C18.1 Malignant neoplasm of appendix (principal)
CPT/HCPCS: 82565; 84520; 71260; 74177; 36415; Q9967